=== PATIENT | female | born 1955 | race African-American/Black ===

== ENCOUNTER 2023-05-18 12:36 | Emergency (ER) | payer MEDICARE, OTHER ==
[~2023-05-18] VITALS: Ht 180.3 cm; Wt 82.0 kg
[2023-05-18 12:40] VITALS: TEMP 98.8; O2SAT 94
[2023-05-18] MEDS ORDERED: SODIUM CHLORIDE 0.9% 1,000 ML IV ONE (13:00)
[2023-05-18 14:50] LABS: CHLORIDE 106 mEq/L (98-107); INDEX HEMOLYSI 1 (1-3); INDEX ICTERIC 1 (1-4); INDEX LIPEMIC 1 (1-3); POTASSIUM 3.1 mEq/L (3.5-5.1); SODIUM 141 mEq/L (136-145)
[2023-05-18 15:02] LABS: ALANINE AMINOTRANSFERASE 139 IU/L (13-61); ALBUMIN 2.9 g/dL (3.4-5.0); ASPARTATE AMINOTRANSFERASE 34 IU/L (15-37); BILIRUBIN TOTAL 0.9 mg/dL (0.1-1.0); CALCIUM 8.7 mg/dL (8.5-10.1); CARBON DIOXIDE 27 mEq/L (21-32); CREATININE 1.3 mg/dL (0.6-1.3); ETHANOL BLOOD < 10 mg/dL (<10); GLUCOSE 86 mg/dL (70-105); PROTEIN TOTAL 6.7 g/dL (6.0-8.3); TROPONIN I HIGH SENSITIVITY 18 ng/L (<54); UREA NITROGEN BLOOD 13 mg/dL (7-21)
[2023-05-18] MEDS ORDERED: POTASSIUM CHLORIDE 20MEQ TABLET SR PO ONE (15:45)
[2023-05-18 15:47] LABS: BASOPHILS % 0.6 % (0.0-2.0); EOSINOPHILS % 2.4 % (0.0-5.0); HEMATOCRIT. 33.1 % (36.0-48.0); HEMOGLOBIN. 11.1 g/dL (12.0-16.0); LYMPHOCYTES % 18.7 % (20.0-50.0); MEAN CORPUSCULAR HEMOGLOBIN 30.5 pg (28.0-32.0); MEAN CORPUSCULAR HGB CONC 33.5 g/dL (31.0-37.0); MEAN CORPUSCULAR VOLUME 91.1 fL (81.0-99.0); MEAN PLATELET VOLUME 8.8 fl (7.4-10.4); MONOCYTES % 11.1 % (2.0-8.0); NEUTROPHILS % 67.2 % (40.0-76.0); PLATELET 232 x1000/uL (130-400); RED BLOOD CELL COUNT 3.64 mill/uL (4.2-5.4); WHITE BLOOD COUNT 8.8 x1000/uL (4.5-11.0)
[2023-05-18] MEDS ORDERED: LORAZEPAM 2MG/ML CPJ IV NR (17:00)
[2023-05-18] MEDS ORDERED: POTASSIUM CHLORIDE 20MEQ TABLET SR PO NR (19:00)
[2023-05-18 19:23] VITALS: BP 110/61; PULSE 90; RESP 24
== END 2023-05-18 19:26 | disposition short-term general hospital (02) ==
LOC: ER 12:36 → CANBEDREQ 17:43 → ER 19:26
DX: R42 Dizziness and giddiness (principal); E87.6 Hypokalemia; I25.2 Old myocardial infarction
CPT/HCPCS: 80053; 80320; 83690; 85025; 85610; 87040; 84484; 36415; 71045; 70450; 93005; 96360; 96361; 99285; J7030; G0480